=== PATIENT | male | born 1970 | race Caucasian/White ===

== ENCOUNTER 2024-05-08 12:00 | Emergency (ER) | payer OTHER, BC, SELFPAY ==
[2024-05-08 12:02] VITALS: BP 170/106; PULSE 124; TEMP 36.7; O2SAT 97; BMI 34.0
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
[2024-05-08 12:24] VITALS: BP 140/98; PULSE 128; O2SAT 98
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
== END 2024-05-08 12:43 | disposition home or self-care (01) ==
PROVIDERS: Emergency Provider Emergency Medicine
DX: Z04.1 Encounter for examination and observation following transport accident (principal)
CPT/HCPCS: 99284